=== PATIENT | male | born 1940 | race Caucasian/White ===

== ENCOUNTER → 2016-09-16 | Outpatient (CLI) | payer OTHER, BC ==
[~2016-09-16] MED LIST: ASPI-428 PO; CHOL1000 PO; CLR/5 PO; COEN100C7; FURO-85 PO; MULT1CAP17; NEBI10TA2 PO; NTRGSL/4 SL; PANT40TA PO
[2016-09-16 13:35] LABS: BASO % 0.4 %; BASO ABS # 0.03 K/uL (0-0.2); COMPLETE YES; EOS % 2.3 %; HEMATOCRIT 50.2 % (42-52); IG% 0.4 %; LYMPH % 25.8 %; LYMPH ABS # 1.98 K/uL (1.2-3.4); MEAN CELL VOLUME 88.4 fL (80-100); MEAN CORPUSCULAR HEMOGLOBIN 29.2 pg (25-34); MEAN CORPUSCULAR HGB CONC 33.1 g/dl (32-36); MONO % 9.4 %; NEUT % 61.7 %; PLATELET COUNT 216 K/uL (130-400); RED BLOOD COUNT 5.68 M/uL (4.7-6.1); WHITE BLOOD COUNT 7.66 K/uL (4.8-10.8)
[2016-09-16 13:50] LABS: CALCIUM 9.8 mg/dl (8.5-10.1)
[2016-09-16 13:58] LABS: ALKALINE PHOSPHATASE 75 U/L (45-117); ALT/SGPT 43 U/L (12-78); AST/SGOT 28 U/L (15-37); BLOOD UREA NITROGEN 24 mg/dl (7-18); BUN/CREATININE RATIO 20.3 (10-20); CARBON DIOXIDE 24 mmol/L (21-32); CHLORIDE 112 mmol/L (98-107); GLUCOSE 92 mg/dl (70-99); POTASSIUM 4.2 mmol/L (3.5-5.1); SODIUM 142 mmol/L (136-145)
[2016-09-16 14:02] LABS: RHEUMATOID FACTOR < 10.0 U/mL (0-15)
[2016-09-16 14:52] LABS: LYME DISEASE AB IGG NEG (NEG)
[2016-09-16 14:55] LABS: LYME DISEASE AB IGM NEG (NEG)
[2016-09-17 03:06] LABS: RAPID PLASMA REAGIN NONREACTIVE (NONREACT)
[2016-09-22 05:33] LABS: GLIADIN DEAMIDATED IgA AB 4 UNITS (<20); GLIADIN DEAMIDATED IgG AB 2 UNITS (<20); RETICULIN IgA AB Negative (Negative)
--- NOTE | 2016-09-22 12:09 | CODING QUERY MEDICAL NECESSITY ---
CQSUPPORTING DIAGNOSIS NEEDED A supporting diagnosis is required for the test/procedure performed on this patient in order for us to be reimbursed by the patient's insurance. Please provide a supporting diagnosis for the following test/procedure listed below next to the test name along with your signature. *If there is no additional diagnosis for this patient that would support the following test/procedure please document that below next to the test/procedure. Test(s)/Procedure(s) that require a supporting diagnosis: DOS 09/16/16 VITAMIN B12 TEST VITAMIN B1 TEST FOLIC ACID TEST SCREENING FOR SEXUALLY TRANSMITTED DISEASE Provider Signature: Date: Thank you Tyra Alanis Health Information Management Once completed, please kindly fax back to [phone] For questions please call [phone]
== END | disposition home or self-care (01) ==
LOC: C.LABBC 09:23
PROVIDERS: ATTEND Psychiatry & Neurology Neurology
DX: G62.9 Polyneuropathy, unspecified (principal); R26.9 Unspecified abnormalities of gait and mobility

== ENCOUNTER → 2016-11-09 | Outpatient (CLI) | payer OTHER, BC ==
[~2016-11-09] MED LIST changes: +GADAVIST IV PRN
--- NOTE | 2016-11-09 09:22 | DIAGNOSTIC IMAGING REPORT ---
Brain MRI WITH AND WITHOUT CONTRAST HISTORY: R27.0 [id number] Ataxic gait. evaluate for NPH. [id number] TECHNIQUE: Multiplanar multisequence MRI of the brain was performed both before and after the intravenous administration of contrast. COMPARISON STUDY: None. FINDINGS: No areas of restricted diffusion to suggest acute infarction. The midline structures are intact. The paranasal sinuses and mastoid air cells are clear. The orbits are unremarkable. The major vascular flow-voids at the skull base are maintained. Mild ventricular prominence is proportional to the atrophic changes given the patient's age. Moderate patchy and focal areas of T2 hyperintensity seen within the periventricular and subcortical white matter. This is nonspecific but favors microvascular ischemic change. There is no mass, hematoma, or midline shift. No abnormal enhancement. IMPRESSION: 1. No acute intracranial abnormality. 2. Presumed moderate microvascular ischemic change. A demyelinating disease, Lyme's disease, or vasculitis could also have a similar appearance but is considered less likely. 3. Moderate atrophic changes which likely explains the mild ventricular prominence. Electronically signed by: Adryan Victor M.D. 11/09/2016 9:20 AM Dictated Date/Time: 11/09/2016 9:09 AM
== END | disposition home or self-care (01) ==
LOC: C.MRIBC 07:32
PROVIDERS: ATTEND Psychiatry & Neurology Neurology
DX: R26.0 Ataxic gait (principal); R27.0 Ataxia, unspecified

== ENCOUNTER 2016-12-16 07:11 | Day surgery (SDC) | payer OTHER, BC ==
[~2016-12-16] VITALS: Ht 172.7 cm; Wt 108.0 kg
[2016-12-16] VITALS (11 sets, daily range): BP systolic 114–146; BP diastolic 56–80; PULSE 62–79; TEMP 36.4–36.8; O2SAT 92–97; Ht 172.7 cm; Wt 108.0 kg
[2016-12-16] MEDS ORDERED: CHOL1000 PO (07:50)
[2016-12-16] MEDS ORDERED: NEBI10TA2 PO (07:50)
[2016-12-16] MEDS ORDERED: COEN100C7 (07:50)
[2016-12-16] MEDS ORDERED: MULT1CAP17 (07:50)
[2016-12-16] MEDS ORDERED: FURO-85 PO (07:50)
[2016-12-16] MEDS ORDERED: CLR/5 PO (07:50)
[2016-12-16] MEDS ORDERED: PANT40TA PO (07:50)
[2016-12-16] MEDS ORDERED: NTRGSL/4 SL (07:50)
[2016-12-16] MEDS ORDERED: ASPI-428 PO (07:50)
--- NOTE | 2016-12-16 10:18 | DIAGNOSTIC IMAGING REPORT ---
FLUOROSCOPICALLY GUIDED LUMBAR PUNCTURE CLINICAL HISTORY: weakness FLUOROSCOPY TIME: 0.3 minutes. A single fluoroscopic spot image. PROCEDURE: The procedure, risks and benefits were discussed with the patient including the risk of spinal headache, bleeding and infection. The patient agreed to the procedure and informed written consent was obtained. The procedure was performed by Dr. Victor following a timeout. The left L4-5 interlaminar space was targeted. Skin overlying the space was prepped and draped in the usual sterile fashion and local anesthesia was achieved with 1% lidocaine. Under intermittent fluoroscopic guidance, a 20-gauge x 12 cm Sprotte needle was inserted into the thecal sac. A total of 13cc of cerebral spinal fluid was obtained and spread amongst 4 vials. The first 2 vials demonstrated a slightly blood-tinged fluid followed by clearing of the last 2 vials. The patient tolerated the procedure well. There were no immediate complications. The specimens were sent to the laboratory at the request of the referring physician. IMPRESSION: Successful fluoroscopic guided lumbar puncture with removal of 13 cc of cerebral spinal fluid. No immediate complications. Opening pressure was 17 cm of H2O. Electronically signed by: Adryan Victor M.D. 12/16/2016 10:16 AM Dictated Date/Time: 12/16/2016 10:14 AM
--- NOTE | 2016-12-16 10:24 | Discharge Instructions ---
Discharge Instructions Procedure Procedure Date: Dec 16, 2016. Reason for visit: High Vol,Norm Press Hydrocephalus,W/Opening Press. Discharge Discharge Date: Dec 16, 2016. Discharge Diagnosis: same Instructions Activity Recommendations: No limitations Return to School/Work: no limitations Recommended Home Diet: Resume Previous Diet Provider Instructions: ACTIVITY RECOMMENDATIONS: * Rest today. * Resume regular activity in one day. MEDICATIONS: * May take Tylenol or Ibuprofen as needed for pain. DIET: * Resume previous diet. SPECIAL CARE INSTRUCTIONS: Call your doctor if: * Temperature above 101 degrees F. * Pain not relieved by pain medicine ordered. * Increased drainage or redness from incision. * Notify your doctor with any questions or concerns. Call your doctor or go to the nearest Emergency Department if you experience: * Increased chest pain or shortness of breath. FOLLOW UP VISIT: Follow-up with Referring Physician as scheduled. Allergies Coded Allergies: Pregabalin (Verified Allergy, Unknown, "backache", 12/16/16) Ciprofloxacin (Verified Adverse Reaction, Unknown, "N/V", 12/16/16) Ofloxacin (Verified Adverse Reaction, Unknown, "n/v and severe headache", 12/16/16) Max Gallegos Recommendations: Call your doctor if: * Temperature above 101 degrees * Pain not relieved by pain medicine ordered * There is increased drainage or redness from any incision * You have any unanswered questions or concerns. Your Doctors Instructions noted above were prepared by provider Adryan Victor. Patient Signature Section: Patient Instructions Signature Page Dane Danae Patient (or Guardian) Signature/Date: I have read and understand the instructions given to me by my caregivers. Caregiver/RN/Doctor Signature/Date: The above-named patient and/or guardian has received patient instructions on this date. + Original Patient Signature Page (only) stays with chart. Please make copy for patient.
[2016-12-16] MEDS ORDERED: ACETAMINOPHEN 500 MG TAB PO PRN (10:30)
[2016-12-16 10:32] LABS: CSF CHEMISTRY TUBE # 1
[2016-12-16 10:39] LABS: CSF TOTAL PROTEIN 61.6 mg/dl (15.0-45.0)
[2016-12-16 11:02] LABS: CSF APPEARANCE BLOODY; CSF COLOR RED; CSF XANTHOCHROMIC NO XANTHOCHROMIA
[2016-12-21 10:12] LABS: ALBUMIN 3.7 g/dL (3.2-4.6); IGG CSF 2.3 mg/dL (0.8-7.7); IGG SERUM 534 mg/dL (694-1618); LYME DNA PCR CSF OR SYNOVIAL Not detected (Not Detected); LYME DNA SOURCE CSF; LYME IGG CSF NO BANDS DETECTED; LYME IGM CSF NO BANDS DETECTED; MYELIN BASIC PROTEIN 663 <2.0 mcg/L (0.0-4.0)
== END 2016-12-16 14:14 | disposition home or self-care (01) ==
LOC: C.ACU 07:11
PROVIDERS: ATTEND Psychiatry & Neurology Neurology
DX: G91.9 Hydrocephalus, unspecified (principal)